=== PATIENT | male | born 1975 | race Hispanic/Latino ===

== ENCOUNTER → 2018-09-06 | Outpatient (CLI) | payer OTHER ==
--- NOTE | 2018-09-06 18:15 | Diagnostic Imaging Report ---
Exam: Left heel, 2 views History: Left heel pain Comparison: None. Findings: There is normal bone mineralization. No acute, displaced fracture or dislocation. Joint spaces preserved. Small anterior calcaneal enthesophyte. No abnormal soft tissue calcification or soft tissue defect. No soft tissue swelling. Impression: 1. No acute abnormalities. Small anterior calcaneal enthesophyte. Signed by: Dr. Harsh Caballero M.D. on 09/06/2018 6:12 PM
--- NOTE | 2018-09-06 18:58 | Diagnostic Imaging Report ---
EXAMINATION: Scrotal ultrasound CLINICAL INDICATION: Persistent testicular pain. COMPARISON: None.. TECHNIQUE: Grayscale and color Doppler evaluation of the scrotum was performed in transverse and longitudinal planes. FINDINGS: The right testicle measures 4.3 x 2.5 x 3.0 centimeters and shows normal echogenicity and vascularity. There are no masses or calcifications.. The right epididymis measures 0.8 x 0.6 x 0.7 cm. Normal echogenicity and vascularity. No nodules or masses.. There is no evidence of right hydrocele. Small right varicocele. There is normal arterial and venous flow to the right testicle, without evidence of torsion. The left testicle measures 4.2 x 1.9 x 3.2 cm and shows normal echogenicity and vascularity There are no masses or calcifications.. The left epididymis measures 0.8 x 1.1 x 0.8 cm. Normal echogenicity and vascularity. No nodules or masses.. There is no evidence of left hydrocele. A left varicocele is identified.. There is normal arterial and venous flow to the left testicle without evidence of torsion. The scrotum has a normal appearance, without focal lesions. IMPRESSION: 1. Normal bilateral testicular size and echogenicity. Normal flow, without evidence of torsion. 2. Bilateral varicoceles, left greater than right Signed by: Dr. Harsh Caballero M.D. on 09/06/2018 6:54 PM
== END ==
LOC: US 16:42
PROVIDERS: ATTEND Family Medicine
DX: M79.672 Pain in left foot (principal); M77.32 Calcaneal spur, left foot; N50.819 Testicular pain, unspecified; I86.1 Scrotal varices
CPT/HCPCS: 76870; 93976